=== PATIENT | male | born 1985 | race Caucasian/White ===

== ENCOUNTER 2017-11-02 13:22 | Outpatient (CLI) | payer OTHER, SELFPAY ==
--- NOTE | 2017-11-02 13:04 | DI.REPORT_ITS ---
SYMPTOMS/DIAGNOSIS: RIGHT ACROMIOCLAVICULAR SEPARATION S/P REDUCTION RIGHT CLAVICLE: Two views. Comparison is 09/30/17. There are postsurgical changes of resection of the distal right clavicle and AC joint repair. Since the prior examination, there has been widening of both the coracoclavicular distance and the acromioclavicular distance with elevation of the right clavicle relative to the acromion. The findings are suspicious for recurrent right AC joint separation.
== END 2017-11-02 13:23 ==
PROVIDERS: PCP Nurse Practitioner Family; Visit Provider Physician Assistant
DX: S43.101D Unspecified dislocation of right acromioclavicular joint, subsequent encounter (principal); R93.7 Abnormal findings on diagnostic imaging of other parts of musculoskeletal system
CPT/HCPCS: 73000

== ENCOUNTER 2017-12-07 12:02 | Outpatient (CLI) | payer OTHER, SELFPAY ==
--- NOTE | 2017-12-07 08:33 | DI.RAD_ITS ---
SYMPTOMS/DIAGNOSIS: F/U SURGERY RIGHT CLAVICLE: Two views. Comparison is 11/02/17. No acute fracture is identified. There is again seen elevation of the right clavicle relative to the acromion suspicious for recurrent right shoulder dislocation. No acute fracture is identified. The soft tissues are unremarkable.
== END 2017-12-07 12:22 ==
PROVIDERS: PCP Nurse Practitioner Family; Visit Provider Physician Assistant
DX: S43.101D Unspecified dislocation of right acromioclavicular joint, subsequent encounter (principal); Z98.890 Other specified postprocedural states
CPT/HCPCS: 73000

== ENCOUNTER 2018-01-20 00:13 | Outpatient (CLI) | payer OTHER, SELFPAY ==
--- NOTE | 2018-01-20 10:05 | DI.MRI_ITS ---
SYMPTOM/DIAGNOSIS: NEW PAIN, S/P SURGERY, AC SEPARATION, TYPE 5, S43.109A RIGHT SHOULDER MRI: MRI examination of the shoulder was performed according to the usual protocol. The patient reportedly has a history of repaired AC separation. There is abnormal signal in the subcutaneous tissues over the superior aspect of the shoulder near the acromioclavicular joint. There is a wavy band of intermediate signal intensity extending from the coracoid to the region of the distal clavicle suggesting laxity or tear of presumed coracoclavicular fixation , please correlate clinically with the surgical history. Distal clavicle appears to have been resected. Biceps tendon appears normally positioned. Glenoid labrum appears grossly intact. No full thickness rotator cuff tear is seen. Small superior surface tear of supraspinatus tendon is noted without retraction. Some abnormal signal is also seen associated with subscapularis attachment which could represent small non retracted tear. CONCLUSION: Findings suggest failure of repaired AC separation. Please correlate with details of surgical history.
== END 2018-01-20 00:33 ==
PROVIDERS: PCP Nurse Practitioner Family; Visit Provider Student in an Organized Health Care Education/Training Program
DX: M25.511 Pain in right shoulder (principal); Z98.890 Other specified postprocedural states; M75.101 Unspecified rotator cuff tear or rupture of right shoulder, not specified as traumatic; S43.109A Unspecified dislocation of unspecified acromioclavicular joint, initial encounter
CPT/HCPCS: 73221

== ENCOUNTER 2018-03-30 08:03 | Day surgery (SDC) | payer OTHER, SELFPAY ==
[2018-03-30] VITALS (9 sets, daily range): BP systolic 110–144; BP diastolic 56–98; PULSE 62–79; RESP 12–21; TEMP 35.8–36.6; O2SAT 97–100
[2018-03-30] MEDS: Lactated Ringers 1,000 ML 80 ML IV (08:29)
[2018-03-30] MEDS: Midazolam 2 MG/2 ML VIAL (09:27)
[2018-03-30] MEDS: Bupivacaine LIPOSOME/PF 133 MG/10 ML VIAL IJ (09:27)
--- NOTE | 2018-03-30 13:31 | DI.RAD_ITS ---
SYMPTOMS/DIAGNOSIS: S/P RT CC RECONSTRUCTION WITH HOOK AND PLATE PORTABLE UPRIGHT EXAMINATION OF THE RIGHT CLAVICLE: A metallic prosthesis is positioned over the lateral clavicle and acromioclavicular joint in conjunction with a right clavicular reconstruction with a hook and plate. The prosthesis appears in excellent position. The surrounding bone is intact.
[2018-03-30] MEDS: fentaNYL 100 MCG/2 ML VIAL IVP ×3 (13:40→14:10)
[2018-03-30] MEDS: HYDROmorphone 2 MG/ML VIAL IVP ×2 (13:50→14:20)
--- NOTE | 2018-03-30 13:59 | W.PM.DSUDISC ---
Discharge Plan Disposition Patient Disposition: [facility] Condition: Good Discharge Details Reason For Visit: RECURRENT (R) AC SEPERATION Attending Provider: Andrea Farias Primary Care Provider: Yazmin Araujo Home Meds and New Rx's Prescriptions: New acetaminophen 500 mg capsule 1,000 mg PO Q8H PRN (Reason: pain) Qty: 90 RF: 0 oxycodone 5 mg tablet 5 mg PO Q4H Qty: 12 RF: 0 Continued ibuprofen 800 MG tablet 800 mg PO TID RF: 0 Discontinued acetaminophen 325 mg Tablet 650 mg PO BID RF: 0 Discharge Instructions Stand Alone Forms: Dinora aBrroso w/EFRA, Yobani Buitrago (DSU) Equipment/Supplies: Sling Activity:: Stay in sling Remove Dressings/Wound Care:: 72 hours Shower/Bathe:: 72 hours Diet:: As Tolerated Discharge Orders Discharge Orders: Discharge Order (Routine); Ordered 03/30/18 Ordered By: Andrea Farias Discharge Data Discharge Physician: Andrea Farias DS: Diagnosis Discharge Diagnosis (1) Separation of right acromioclavicular joint, type 5: Status: Acute
[2018-03-30] MEDS: Normal Saline Flush 10 ML SYR IV (14:02)
[2018-03-30] MEDS: oxyCODONE 5 MG TAB PO (14:48)
--- NOTE | 2018-03-31 08:34 | ROE_ITS ---
REPORT OF OPERATIVE PROCEDURE DATE OF SURGERY March 30, 2018 PREOPERATIVE DIAGNOSIS Type-V AC separation, right shoulder. POSTOPERATIVE DIAGNOSIS Type-V AC separation, right shoulder. SURGERY Revision coracoclavicular reconstruction with hook plate. SURGEON Andrea Farias M.D. GRADES 1 THRU 6 VISITING TEACHER Rosita Rivero PA-C. ANESTHESIA General with Supraclavicular nerve block. ESTIMATED BLOOD LOSS 25 cc. COMPLICATIONS None. DISPOSITION The patient was awakened from anesthesia and taken to the PACU in stable condition. PROCEDURES PERFORMED Elbert is a 32-year-old who had suffered a type-V AC separation a few years ago. He had tried nonoperat margaret treatment options and eventually underwent reconstruction by myself using Allograft tissue throug h drill holes in the clavicle, the anatomic approach described by Hussein Terry. Unfortunately, follow ing his surgery, he had multiple incidences where he had fallen and he had the arm pulled on, and jaya ious things have happened to the right arm. These traumatic events eventually lead to the failure of the reconstruction. 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 It was painfu l and there was notable deformity. Given this, I did offer to revise the right shoulder. I discussed the technical details with Elbert. I was very explicit that he has to follow his postoperative precauti ons and to help improve the results, I did plan to use a hook plate, which would have to removed at a later date. I reviewed the technical details of the surgery. I reviewed the risks to include bleedin g, infection, pain, stiffness, fracture, damage to nerves and vessels, shoulder impingement, need for repeat procedures, failure, blood clot. Despite these risks, he elected to proceed. DESCRIPTION OF PROCEDURE Elbert was greeted in the preoperative holding area. His identity was confirmed and the correct side wa s identified and marked. The history and physical was updated and signed. He was taken back to the [facility] where a supraclavicular nerve block was administered. After the successful administration, he was taken to the Operating Room. He was then placed in a supine position and a general anesthetic was gi zayra. He was then positioned in the beach chair position. The right arm was prepped with ChloraPrep a nd draped in a standard fashion. Prophylactic antibiotics in the form of cefazolin were given. A time out was performed for safe surgery. The previous incision was then incised. Dissection was carried down through the skin and the subcutan eous fat. The platysma was identified and this was incised transversely in plane with the clavicle. T he platysma was freed and dissected, exposing the deep clavipectoral fascia. This was incised along t he anterior-superior border of the clavicle and across the remnant AC joint onto the acromion. Graft remnants were seen traversing from the distal clavicle to the AC joint. The superior constraint had o bviously been torn and the anterior fibers of the AC joint were still intact from the previous recons truction. The interference screws were seen within the tunnels. These were now loose, yet the graft was still intact. The screws were removed. It was noted to be in a somewhat stretched position, as th e clavicle was still quite high. The FiberTape suture, which was there for backup had torn. An exposu re was completed and the wound was thoroughly irrigated for better visualization of the anatomy. On the back table, the semitendinous graft was prepared. The ends were whip stitched and the tendon w as placed in 10 pounds of traction and was kept moist with the vancomycin soaked gauze. The clavicle drill tunnels were then evaluated. The more medial one was approximately 6 to 6.5 millim eters in diameter. The more lateral one was approximately 7.5 millimeters in diameter. The lateral ho le was cleaned with a curette and with a Bovie. The hole was re-reamed on hand to a size 8-mm diamete r hole. The more medial hole was reamed up to a size 7-mm hole. The remnants of the previous grafts w ere followed down towards the coracoid. Blunt dissection was used to expose this path down to the cor acoid. A path was made around the coracoid. The graft had already healed into the coracoid and so I d id not try to remove all remnants of this graft, but simply created a new path for the new graft to g o in today. Once this path was made, I used a coracoid suture passer to bring a passing suture underneath the cor acoid. I then passed one Arthrex FiberTape, as well as the limbs from the semitendinous Allograft. Th e Allograft was brought around the bottom of the coracoid. The graft and FiberTape were then brought through the tunnels. Starting with the lateral tunnel, the FiberTape was brought through the middle o f the interference screw. An Arthrex 8 x 10 mm interference screw was then used to secure the semiten dinous graft to the clavicle. This one had decent purchase and then was removed. There was no notable fracture. The AC joint was then reduced by a downward pressure on the clavicle, as well an upward pr essure on the elbow. This was held in its reduced position as the second interference screw was place d. The graft was held under traction and tension to make sure that the length was set. This 8 x 10 mm Arthrex screw was then placed again with excellent purchase onto the cortex. There was no fracture n oted. The FiberTape suture, which had been placed through the middle of the interference screws was t hen tied over itself on top of the clavicle. The excess graft was excised. The arm was checked and th is seemed to have good reduction of the clavicle. Given the failure of the previous first surgery, I then proceeded with placement of a hook plate. A Synthes hook plate templates were used and size 15 mm depth was utilized. A Cristobal was used to free u p space underneath the acromion. A 7-hole Synthes hook plate was then used. It was placed underneath the posterior aspect of the acromion and slid against the acromion. It was resting on the clavicle. G iven the location of the previous screw hole, I was only able to use the medial three screws. These w ere secured with nonlocking cortical screws. This has excellent fixation with good bone quality. The arm was manipulated and it showed abduction of 145 degrees and forward flexion of the same. There wa s no apparent impingement. The hook plate had good secure fixation underneath the acromion. The wound was then thoroughly irrigated. The deep tissue including the clavipectoral fascia and the deeper structures were re-approximated wit h a #2 FiberWire. A #2-0 FiberWire was also used to reapproximate the tissues overlying the plate and the clavicle. The platysma was closed with a #3-0 Vicryl. The skin was closed with #3-0 Vicryl. The subcuticular layer was closed with 4-0 Monocryl in a running subcuticular fashion and reinforced with skin glue followed by Mepilex Silver dressing. A Cryo/Cuff was applied to the right shoulder. He was placed into an abduction pillow sling. He was t hen transferred to the PACU in stable condition. At the end of the case, all counts were correct.
== END 2018-03-30 15:32 | disposition home or self-care (01) ==
PROVIDERS: PCP Nurse Practitioner Family; Visit Provider Student in an Organized Health Care Education/Training Program
PROC: (CPT 23552; principal; 2018-03-30 10:15)
DX: S43.121A Dislocation of right acromioclavicular joint, 100%-200% displacement, initial encounter (principal); X58.XXXA Exposure to other specified factors, initial encounter; T84.218A Breakdown (mechanical) of internal fixation device of other bones, initial encounter
CPT/HCPCS: 23552; 64413; 64415; 76942; 73000; J0690; J1100; J1885; J2250; J2405; J3010; L3670

== ENCOUNTER 2018-04-12 13:45 | Outpatient (CLI) | payer MEDICAID, SELFPAY ==
--- NOTE | 2018-04-12 13:28 | DI.RAD_ITS ---
SYMPTOM/DIAGNOSIS F/U SURGERY RIGHT CLAVICLE: Two views. Comparison is made with 12/07/16. Since the prior examination, the patient has undergone coracoclavicular reconstruction with a hook. The orthopedic hardware appears in good position. The bones appear intact.
== END 2018-04-12 14:05 ==
PROVIDERS: PCP Nurse Practitioner Family; Visit Provider Physician Assistant
DX: S43.101D Unspecified dislocation of right acromioclavicular joint, subsequent encounter (principal); Z98.890 Other specified postprocedural states; Z47.89 Encounter for other orthopedic aftercare
CPT/HCPCS: 73000

== ENCOUNTER 2018-06-12 14:40 | Outpatient (CLI) | payer MEDICAID, SELFPAY ==
--- NOTE | 2018-06-12 14:30 | DI.RAD_ITS ---
SYMPTOM/DIAGNOSIS: F/U RT AC RECONSTRUCTION RIGHT CLAVICLE: A single view was performed. Comparison is made with 04/12/18. There are again seen post surgical changes of a right clavicular reconstruction. There has been no significant change of the orthopedic hardware or osseous structures compared to the prior examination.
== END 2018-06-12 15:00 ==
PROVIDERS: PCP Nurse Practitioner Family; Visit Provider Physician Assistant
DX: S43.101D Unspecified dislocation of right acromioclavicular joint, subsequent encounter (principal); Z98.890 Other specified postprocedural states
CPT/HCPCS: 73000

== ENCOUNTER 2024-04-02 15:43 | Outpatient (CLI) | payer OTHER, SELFPAY ==
--- NOTE | 2024-04-02 09:11 | DI.RAD_ITS ---
Exam(s) XR CLAVICLE RT EXAM: XR CLAVICLE RT CLINICAL HISTORY: retained hardware R clavicle TECHNIQUE: 2D digital imaging was performed. Two views COMPARISON: CR XR CLAVICLE RT from 04/12/2018 CR XR CLAVICLE RT from 06/12/2018 FINDINGS: BONES: Hardware in place the distal clavicle and acromion. No acute fracture is present. No bony katherine tructive lesion is seen. JOINTS: No dislocation present. Degenerative changes glenohumeral joint. SOFT TISSUE: Normal IMPRESSION: Postsurgical and degenerative changes DATA REPOSITORY: RADIATION DOSE DELIVERED:
== END 2024-04-02 15:44 | disposition home or self-care (01) ==
LOC: DIORS 15:43
PROVIDERS: Visit Provider Student in an Organized Health Care Education/Training Program
DX: S43.101D Unspecified dislocation of right acromioclavicular joint, subsequent encounter (principal); X58.XXXD Exposure to other specified factors, subsequent encounter; Z98.890 Other specified postprocedural states
CPT/HCPCS: 73000

== ENCOUNTER 2024-09-18 12:04 | Day surgery (SDC) | payer OTHER, SELFPAY ==
--- NOTE | 2024-09-18 07:11 | PDOC.DSDIS_ITS ---
Date of service: 09/18/24 Discharge Plan Disposition Patient Disposition: Home Condition: Good Discharge Details Reason For Visit: Painful orthopedic hardware - right clavicle Attending Provider: Andrea Farias Primary Care Provider: Myrtle Lewis Home Meds and New Rx's Prescriptions: New hydrocodone-acetaminophen 5-325 mg tablet 1 tab PO Q6H PRN (Reason: severe pain) Qty: 6 0RF Rx Instructions: Take one tablet up to every 6 hours as needed for severe postoperative pain acetaminophen 500 mg tablet 1,000 mg PO Q8H PRN Qty: 90 0RF Rx Instructions: Take two tablets up to every 8 hours as needed for pain ibuprofen 600 mg tablet 600 mg PO TID PRN (Reason: pain) Qty: 60 0RF Continued buprenorphine HCl 8 mg tablet, sublingual 16 mg sublingual DAILY Discontinued acetaminophen 500 mg capsule 1,000 mg PO Q8H PRN (Reason: pain) Qty: 90 0RF Discharge Instructions Additional Instructions: Clavicle Hardware Removal Discharge Instructions Activity: You may use your arm for light activity. Avoid doing too much activity. Avoid lifting over 5 pounds. Use sling for support until your follow- up. Dressing/Cast: Your dressing should stay in place for 1 week or until your follow-up visit. Medications: - You should take Tylenol and Ibuprofen for baseline pain control. - You have been prescribed a stronger pain medication, Hydrocodone, for breakthrough pain. - You may apply ice over the clavicle, just double bag so it doesn't get wet. Follow-up: 10-14 days Stand Alone Forms: Anesthesia Discharge InstMunir, Yobani Buitrago (DSU) Referrals: Andrea Farias MD [ [facility] STAFF PHYSICIAN, Orthopaedic Surgical] - 10/04/24 10:30 am Equipment/Supplies: Sling Remove Dressings/Wound Care:: Do Not Remove Shower/Bathe:: Cover Diet:: As Tolerated Discharge Orders Discharge Orders: Discharge Order (Routine); Ordered 09/18/24 Ordered By: Rosita Rush
== END 2024-09-18 12:05 | disposition home or self-care (01) ==
LOC: SUR 11-29 12:04
PROVIDERS: Visit Provider Student in an Organized Health Care Education/Training Program
DX: Z53.29 Procedure and treatment not carried out because of patient's decision for other reasons (principal)
CPT/HCPCS: J1100; J2003; J2250; J2405; J2704; J3010